=== PATIENT | male | born 1985 | race Caucasian/White ===

== ENCOUNTER 2023-11-30 23:57 | Emergency (ER) | payer SELFPAY ==
[~2023-11-30] VITALS: Ht 158 cm; Wt 63.6 kg
[2023-12-01 00:01] VITALS: TEMP 97.5
[2023-12-01] MEDS ORDERED: Morphine 4 MG/ML VIAL IV ONE (00:15)
[2023-12-01] MEDS ORDERED: LR 1,000 ML IV SCH (00:15)
[2023-12-01 00:26] LABS: BASO # 0.1 K/mm3 (0.0-0.2); BASO % 0.5 % (0.0-2.0); EOS # 0.5 K/mm3 (0.0-0.7); EOS % 4.6 % (0.0-4.0); GRAN # 6.5 K/mm3 (1.4-6.5); GRAN % 58.7 % (42.2-75.2); LYMPH # 3.1 K/mm3 (1.2-3.4); LYMPH % 27.7 % (20.0-51.0); MEAN CELL VOLUME 94 fl (80.0-100.0); MEAN CORPUSCULAR HEMOGLOBIN 33 pg (27-31); MEAN CORPUSCULAR HGB CONC 36 g/dl (33.0-37.0); MEAN PLATELET VOLUME 9.1 fl (7.4-10.4); MONO # 0.8 K/mm3 (0.1-0.6); MONO % 7.1 % (1.7-9.3); PLATELET COUNT 380 K/mm3 (130-400); RED BLOOD COUNT 5.44 M/mm3 (4.20-5.60); REDCELL DISTRIBUTION WIDTH-CV 13.5 % (11.5-14.5)
[2023-12-01 00:29] LABS: HEMOGLOBIN 18.1 g/dl (13.5-18.0)
[2023-12-01 00:33] LABS: INR 0.9 (0.8-3.0); PROTHROMBIN TIME 10.2 SECONDS (9.7-12.8)
[2023-12-01 00:45] LABS: ALANINE AMINOTRANSFERASE 81 U/L (0-55); ALBUMIN 4.4 g/dL (3.5-5.0); ALKALINE PHOSPHATASE 134 U/L (40-150); ANION GAP 14 mmol/L (7-16); AST,SGOT 73 U/L (5-34); BILIRUBIN,TOTAL 0.3 mg/dL (0.2-1.2); BLOOD UREA NITROGEN < 5 mg/dL (9-21); CALCIUM 10.4 mg/dL (8.4-10.2); CHLORIDE 106 mEq/L (98-107); CREATININE, serum 0.87 mg/dL (0.72-1.25); GLUCOSE 109 mg/dL (70-99); SODIUM 143 mEq/L (136-145); TOTAL PROTEIN 9.2 g/dl (6.2-8.1)
[2023-12-01 00:46] LABS: ALCOHOL(ethanol),MEDICAL 346 mg/dL (0-10)
[2023-12-01 00:46] LABS: PH 5.5 (5.0-8.5); URINE APPEARANCE CLEAR (CLEAR/HAZY); URINE BLOOD NEGATIVE (NEGATIVE); URINE COLOR YELLOW (YELLOW); URINE GLUCOSE NEGATIVE (NEGATIVE); URINE KETONE NEGATIVE (NEGATIVE); URINE NITRATE NEGATIVE (NEGATIVE); URINE PROTEIN(semi-quant) NEGATIVE (NEGATIVE); URINE UROBILINOGEN 0.2 E.U/dL (0.2-1.0)
[2023-12-01 01:05] LABS: COLLECTION METHOD CLEAN CATCH
[2023-12-01] MEDS ORDERED: Iohexol 300 - 100 ML VIAL IV ONE (01:47)
[2023-12-01] MEDS ORDERED: NS 50 ML IV SCH (01:47)
[2023-12-01] MEDS ORDERED: NS 1,000 ML IV ONE (04:00)
[2023-12-01 07:32] VITALS: BP 105/68; PULSE 91
== END 2023-12-01 07:32 | disposition home or self-care (01) ==
LOC: COL.ER 23:57
PROVIDERS: Emergency Medicine
DX: S00.31XA Abrasion of nose, initial encounter (principal); F10.129 Alcohol abuse with intoxication, unspecified; Y90.8 Blood alcohol level of 240 mg/100 ml or more; Y04.8XXA Assault by other bodily force, initial encounter
CPT/HCPCS: J2270; J7030; J7120; Q9967